=== PATIENT | male | born 1985 | race Caucasian/White ===

== ENCOUNTER 2022-05-18 06:50 | Inpatient (IN) | payer MEDICAID ==
[2022-05-18] VITALS (13 sets, daily range): BP systolic 105–134; BP diastolic 69–102
[~2022-05-18] VITALS: Ht 175.3 cm; Wt 64.0 kg
--- NOTE | 2022-05-18 07:15 | NUR ---
BIBSELF NAUSEA AND VOMITING X9 SINCE YESTERDAY 6PM , ARM TREMORS NOTED DURING ASSESSMENT. PATIENT STATED THAT HIS HICCUPS STARTED 2 WEEKS AGO AND GOT WORSEN BY VOMINTING. MD MADE AWARE. CARE CONTINUES .
--- NOTE | 2022-05-18 07:20 | NUR ---
BLOOD SAMPLE OBTAINED BY BONSAI CULTURIST
--- NOTE | 2022-05-18 07:25 | NUR ---
IV LINE ESTABLISHED AT RIGHT AC 20 G , INFUSING WELL.
[2022-05-18] MEDS ORDERED: ONDANSETRON HCL/PF 4 MG/2 ML VIAL IVP ONE (07:30)
[2022-05-18] MEDS ORDERED: IV NS 0.9% 1,000 ML BAG IV ONE (07:30)
[2022-05-18 07:41] LABS: BASOPHILS % (AUTO) 0.3 % (0.0-2.0); EOSINOPHILS % (AUTO) 0.1 % (0.0-6.0); HEMATOCRIT 33 % (39-51); HEMOGLOBIN 11.6 g/dL (13.5-17.5); LYMPHOCYTES # (AUTO) 0.7 K/uL (0.8-4.8); LYMPHOCYTES % (AUTO) 8.2 % (20.0-44.0); MEAN CORPUSCULAR HGB CONC 35 g/dl (31.0-36.0); MEAN CORPUSCULAR VOLUME 92 fL (80-96); MONOCYTES # (AUTO) 0.8 K/uL (0.1-1.30); MONOCYTES % (AUTO) 9.6 % (2.0-12.0); NEUTROPHILS # (AUTO) 6.5 K/uL (1.8-8.9); NEUTROPHILS % (AUTO) 81.8 % (43.0-81.0); PLATELET COUNT (AUTO) 285 K/uL (150-450); RED BLOOD CELL COUNT(AUTO) 3.63 MIL/uL (4.5-6.0)
[2022-05-18] MEDS ORDERED: ONDANSETRON HCL/PF 4 MG/2 ML VIAL ONE (07:44)
[2022-05-18 07:55] LABS: BILIRUBIN,DIRECT 0.8 mg/dL (0.0-0.2); BILIRUBIN,TOTAL 1.7 mg/dL (0.2-1.0); CALCIUM, SERUM 9.8 mg/dL (8.5-10.1); CREATININE 0.7 mg/dL (0.6-1.3); TOTAL PROTEIN, SERUM 7.4 g/dL (6.4-8.2)
[2022-05-18] MEDS ORDERED: LORAZEPAM INJ 2 MG/ML VIAL IV ONE ×2 (08:00→09:30)
[2022-05-18] MEDS ORDERED: LORAZEPAM INJ 2 MG/ML VIAL ONE ×2 (08:03→09:31)
--- NOTE | 2022-05-18 08:17 | NUR ---
COVID SWAB TAKEN SENT TO LAB
--- NOTE | 2022-05-18 08:45 | NUR ---
MOVE SHEET SUBMITTED.
--- NOTE | 2022-05-18 09:29 | NUR ---
[facility] CALLED RESTAURANT EXPEDITOR PAGED.
[2022-05-18] MEDS ORDERED: LORAZEPAM INJ 2 MG/ML VIAL IV PRN (10:00)
[2022-05-18] MEDS ORDERED: ONDANSETRON HCL/PF 4 MG/2 ML VIAL IVP PRN (10:00)
[2022-05-18] MEDS ORDERED: IV Sodium Chloride 3% 500 ML 300 ML IV SCH (10:00)
[2022-05-18] MEDS ORDERED: IV Sodium Chloride 3% 500 ML 500 ML IV ONE (10:00)
--- NOTE | 2022-05-18 10:31 | NUR ---
GOT BED 252 ADMITTING NOTIFIED.
--- NOTE | 2022-05-18 10:36 | NUR ---
REPORT GIVEN TO NURSE MCPHERSON FOR COLT
[2022-05-18 10:57] LABS: BILIRUBIN,URINE 1+ (NEGATIVE); COLOR,URINE YELLOW (YELLOW); LEUKOCYTE ESTERASE ,URINE NEGATIVE (NEGATIVE); NITRITE, URINE NEGATIVE (NEGATIVE); PH,URINE 8.5 (5.0-8.0); PROTEIN,URINE TRACE mg/dl (NEGATIVE); UGLUCOSE NEGATIVE (NEGATIVE); UROBILINOGEN,URINE 0.2 EU/dL (0.2)
[2022-05-18 11:16] LABS: BACTERIA,URINE Few /HPF (None Seen); SQUAMOUS EPITHELIAL CELL,UR Few /HPF (None Seen); WBC,URINE 0-2 /HPF (0-3)
--- NOTE | 2022-05-18 11:18 | NUR ---
MOVED TO INPATIENT ROOM SAFELY PER ACLS PROTOCOL, 3% NS RUNNING AT THE RATE OF 25ML/HR ENDORSED TO ICU NURSE LISANDRA.
--- NOTE | 2022-05-18 11:30 | NUR ---
EGG BREAKING MACHINE OPERATOR NOTE ADMIT 37 YEAR OLD CAMBODIAN MALE,ON ICU MONITORING AT ROOM 252,ALERT ORIENTED X2-3 CONFUSED,ANXIOUS ADMITTING DIAGNOSIS IS HYPONATREMIA/ETOH WITHDRAW,IV SITE IS ON RIGHT AC AND RIGHT HAND INTACT PATENT ON NS 3%,25CC/HR SAFETY MEASURE IMPLEMENT BED IN LOW POSITION AND LOCKED,BED ALARM IS ON HEAD OF THE BED ELEVATED CONTINUE TO MONITOR.
[2022-05-18] MEDS: ENOXAPARIN SODIUM 40 MG/0.4 ML DISP.SYRIN SQ SCH (11:40)
[2022-05-18] MEDS ORDERED: SODIUM CHLORIDE 3% IV SCH (11:47)
[2022-05-18] MEDS ORDERED: HALOPERIDOL LACTATE INJ 5 MG/ML VIAL IM ONE ×2 (12:30→18:00)
[2022-05-18] MEDS: IV D5W 1,000 ML IV PRN (15:15)
[2022-05-18] MEDS: POTASSIUM CL. PREMIX PERIPHER. 50 ML IV SCH ×5 (15:31→20:27)
[2022-05-18] MEDS: METRONIDAZOLE 500MG/ NS 100ML 500 MG in PREMIX 1 EA IV SCH ×2 (16:30→23:52)
[2022-05-18] MEDS: CLINDAMYCIN 300 MG in IV D5W 50 ML IV SCH ×2 (17:45→23:52)
[2022-05-18 17:54] LABS: CALCIUM, SERUM 9.4 mg/dL (8.5-10.1); CREATININE 0.6 mg/dL (0.6-1.3)
[2022-05-18] MEDS ORDERED: METRONIDAZOLE 500MG/ NS 100ML 500 MG in PREMIX 1 EA IV SCH (18:00)
--- NOTE | 2022-05-18 18:41 | NUR ---
CHEESE WEIGHER NOTE PATIENT REMAINS ALERT ORIENTED X3-4, VERBALLY RESPONSIVE ON ROOM AIR O2:94% IV SITE IS ON LEFT UPPER ARM MIDLINE,RAC AND RIGHT HAND INTACT PATENT,TACHYCARDIAC 133-143 ON CONDOM CATH,URINE DRAINING YELLOW AND CLEAR BY GRAVITY,ON IV HYDRATION D5W 75CC/HR,ALL DUE MEDS GIVEN MD ORDERED REPLACE POTASSIUM,KEPT HEAD OF THE BED ELEVATED, IS BED SIDE,WILL ENDORSE NEXT COMING SHIFT FOR CONTINUATION OF CARE.
[2022-05-18 23:28] LABS: CALCIUM, SERUM 9.7 mg/dL (8.5-10.1); CREATININE 0.7 mg/dL (0.6-1.3); POTASSIUM 3.4 mmol/L (3.5-5.1)
[2022-05-19] VITALS (22 sets, daily range): BP systolic 95–115; BP diastolic 58–81
[2022-05-19] MEDS: CLINDAMYCIN 300 MG in IV D5W 50 ML IV SCH ×4 (05:17→23:05)
[2022-05-19] MEDS: IV D5W 1,000 ML IV PRN ×2 (06:20→20:38)
--- NOTE | 2022-05-19 07:15 | NUR ---
HELPER STEEL FABRICATION OPEN NOTE: ASLEEP. RESPIRATIONS ARE EVEN AND UNLABORED. HOB ELEVATED. COLLATERAL SPECIALIST SINUS TACHY 120'S. IV ON LUM ML WITH IVF ORDERED. RIGHT UPPER ARM AC AND RIGHT HAND IV LINES PATENT. NO S/S OF COMPLICATIONS. BILATERAL HALF SIDE RAILS UP X2. BED IN LOW POSITION, LOCKED, EXIT ALARM ON. CALL LIGHT IN REACH. AT BEDSIDE.
[2022-05-19 07:34] LABS: CALCIUM, SERUM 9.2 mg/dL (8.5-10.1); CREATININE 0.7 mg/dL (0.6-1.3)
[2022-05-19] MEDS: METRONIDAZOLE 500MG/ NS 100ML 500 MG in PREMIX 1 EA IV SCH ×2 (08:10→16:37)
[2022-05-19 08:16] LABS: POTASSIUM 2.7 mmol/L (3.5-5.1)
[2022-05-19] MEDS: PANTOPRAZOLE 40 MG VIAL IV SCH (08:59)
[2022-05-19] MEDS: POTASSIUM CL. PREMIX PERIPHER. 50 ML IV SCH ×5 (08:59→13:45)
[2022-05-19] MEDS: ENOXAPARIN SODIUM 40 MG/0.4 ML DISP.SYRIN SQ SCH (11:35)
[2022-05-19 11:40] LABS: CALCIUM, SERUM 8.8 mg/dL (8.5-10.1); CREATININE 0.6 mg/dL (0.6-1.3)
[2022-05-19 11:57] LABS: POTASSIUM 2.8 mmol/L (3.5-5.1)
[2022-05-19] MEDS: CHLORDIAZEPOXIDE HCL 25 MG CAPSULE PO SCH ×2 (13:00→18:00)
[2022-05-19 16:32] LABS: CALCIUM, SERUM 8.6 mg/dL (8.5-10.1); CREATININE 0.5 mg/dL (0.6-1.3); POTASSIUM 3.6 mmol/L (3.5-5.1)
--- NOTE | 2022-05-19 18:30 | NUR ---
DIRECTOR OF GUIDANCE CLOSING NOTE: AWAKE AND RESPONSIVE. ALERT TIMES THREE. RESPIRATIONS ARE EVEN AND UNLABORED AT ROOM AIR SATING AT 97%. HOB ELEVATED. GASOLINE ATTENDANT SINUS TACHY 107. IV ON LUM PATENT. RIGHT UPPER ARM AC PATENT. NO S/S OF COMPLICATIONS. RIGHT HAND IV LINES PATENT NO S/S OF COMPLICATIONS WITH D5W 75 ML/HR. BILATERAL HALF SIDE RAILS UP X2. BED IN LOW POSITION, LOCKED, EXIT ALARM ON. CALL LIGHT IN REACH. AND FAMILY AT BEDSIDE. ON CLEAR LIQUID DIETS. TOLERATED WELL. NO N/V. CONTINUES ON IV ABX. NO S/E. DENIES PAIN OR DISCOMFORT.
--- NOTE | 2022-05-19 21:45 | NUR ---
report to Estephania Rn on TOM. UPDATED pt status. no acute distress, no s/s of withdrawals. at bedside. instructed on plan of care to transfer to tom. both verbalized understanding. transfered to room 329 via w/c. NAD at side
--- NOTE | 2022-05-19 22:20 | NUR ---
RN OPERATING ROOMSOLE STAPLER WELT NOTES RECEIVED PATIENT FROM ICU WITH NURSE SAHRA AND WHILE PATIENT WAS ON WHEELCHAIR. PATIENT IS A/O TIMES 4. ABLE TO MAKE NEEDS KNOWN. GEORGIAN AND PALESTINIAN SPEAKER. NO PAIN NOTED. NO SOB NOTED. NO DISTRESS NOTED. VITAL SIGNS NOTED RL=408/83, P=108, T=98.4, RR=20, O2 = 98% RA. IV ACCESS ON THE LEFT FA # 20 INTACT RUNNING D5W AT 75 ML/HR. PATIENT IS AMBULATORY AND BRP. ALL NEEDS ATTENDED. STAYING OVERNIGHT WITH THE PATIENT. OVERALL SKIN INTACT. ALL SAFETY MEASURES IN PLACE. BED LOCKED IN THE LOWEST POSITION. CALL LIGHT AND TABLE IN EASY REACH. SIDE RAILS UP TIMES 2. WILL CONTINUE TO MONITOR CLOSELY.
[2022-05-19 23:51] LABS: CALCIUM, SERUM 8.7 mg/dL (8.5-10.1); CREATININE 0.7 mg/dL (0.6-1.3); POTASSIUM 3.3 mmol/L (3.5-5.1)
[2022-05-20] VITALS: BP 140/71
[2022-05-20] MEDS: METRONIDAZOLE 500MG/ NS 100ML 500 MG in PREMIX 1 EA IV SCH ×4 (00:06→23:26)
--- NOTE | 2022-05-20 00:30 | NUR ---
RN NOTES LAB RESULT FOR POTASSIUM NOTED 3.[address] AKBAR KAUR. AT 0000. NEW ORDER OF KDUR [address] ONCE GIVEN BY DR KAUR. ORDER NOTED AND CARRIED OUT.
[2022-05-20] MEDS ORDERED: POTASSIUM CHLORIDE 20 MEQ TAB.PRT.SR PO ONE (01:00)
[2022-05-20] MEDS: CLINDAMYCIN 300 MG in IV D5W 50 ML IV SCH ×4 (05:12→23:16)
--- NOTE | 2022-05-20 06:47 | NUR ---
NURSING PROFESSOR CLOSING NOTES PATIENT AWAKE IN BED . AT BED SIDE. PATIENT IS A/O TIMES 4. ABLE TO MAKE NEEDS KNOWN. CZECH AND GRENADIAN SPEAKER. NO PAIN NOTED. NO SOB NOTED. NO DISTRESS NOTED. VITAL SIGNS IN STABLE CONDITION.IV ACCESS ON THE LEFT FA # 20 INTACT RUNNING D5W AT 75 ML/HR.ALSO THERE ARE 2 OTHER IV ACCESS LINES RIGHT HAND # 20 AND RIGHT AC # 20 . PATIENT IS AMBULATORY AND BRP. ALL DUE MEDS GIVEN ORDERED.ALL NEEDS ATTENDED. STAYED OVERNIGHT WITH THE PATIENT. OVERALL SKIN INTACT. ALL SAFETY MEASURES IN PLACE. BED LOCKED IN THE LOWEST POSITION. CALL LIGHT AND TABLE IN EASY REACH. SIDE RAILS UP TIMES 2. WILL ENDORSE FOR COLT.
[2022-05-20 07:03] LABS: BASOPHILS % (AUTO) 0.9 % (0.0-2.0); EOSINOPHILS % (AUTO) 1.1 % (0.0-6.0); HEMATOCRIT 27 % (39-51); HEMOGLOBIN 9.2 g/dL (13.5-17.5); LYMPHOCYTES # (AUTO) 1.2 K/uL (0.8-4.8); LYMPHOCYTES % (AUTO) 22.9 % (20.0-44.0); MEAN CORPUSCULAR HGB CONC 34 g/dl (31.0-36.0); MEAN CORPUSCULAR VOLUME 94 fL (80-96); MONOCYTES # (AUTO) 0.8 K/uL (0.1-1.30); MONOCYTES % (AUTO) 16.6 % (2.0-12.0); NEUTROPHILS % (AUTO) 58.5 % (43.0-81.0); PLATELET COUNT (AUTO) 292 K/uL (150-450); RED BLOOD CELL COUNT(AUTO) 2.89 MIL/uL (4.5-6.0); WHITE BLOOD COUNT (AUTO) 5.1 K/uL (4.3-11.0)
[2022-05-20 07:26] LABS: CALCIUM, SERUM 8.7 mg/dL (8.5-10.1); CREATININE 0.6 mg/dL (0.6-1.3); MAGNESIUM 1.4 mg/dL (1.8-2.4); PHOSPHORUS 1.5 mg/dL (2.5-4.9); POTASSIUM 3.2 mmol/L (3.5-5.1)
--- NOTE | 2022-05-20 07:30 | NUR ---
PATIENT RECEIVED RESTING COMFORTABLY IN BED WITH EYES CLOSED. NO S/S OR C/O PAIN OR DISTRESS NOTED. SIDE RAILS UP X2, CALL LIGHT LEFT WITHIN REACH. WILL CONTINUE PLAN OF CARE.
[2022-05-20 08:36] VITALS: BP 112/73
[2022-05-20] MEDS: CHLORDIAZEPOXIDE HCL 25 MG CAPSULE PO SCH ×3 (09:23→18:58)
[2022-05-20] MEDS: PANTOPRAZOLE 40 MG VIAL IV SCH (09:23)
[2022-05-20] MEDS: ENOXAPARIN SODIUM 40 MG/0.4 ML DISP.SYRIN SQ SCH (09:34)
[2022-05-20] MEDS ORDERED: POTASSIUM CHLORIDE 20 MEQ POWDER PACKET PO ONE (10:00)
[2022-05-20 11:04] VITALS: BP 112/73
[2022-05-20 11:22] VITALS: BP 111/73
[2022-05-20] MEDS: Magnesium 1GM/D5W 100ML PREMIX 100 ML IV SCH ×4 (12:07→15:52)
[2022-05-20 16:05] VITALS: BP 120/79
[2022-05-20] MEDS: IV D5W 1,000 ML IV PRN (16:32)
--- NOTE | 2022-05-20 18:24 | NUR ---
CHANGE OF SHIFT REPORT PT RESTING COMFORTABLY IN BED. NO S/S/ OR C/O PAIN OR DISTRESS NOTED. SIDE RAILS UP X2, CALL LIGHT LEFT WITHIN REACH. PT KEPT CLEAN, DRY AND COMFORTABLE. WILL GIVE REPORT TO MAKEDA MILLER.
[2022-05-20] MEDS ORDERED: NEUTRA PHOS 1 POWD.PACKET PO ONE (18:30)
--- NOTE | 2022-05-20 19:34 | NUR ---
RN OPENING NOTES; RECEIVED PT IN BED SLEEPING BUT EASY TO AROUSED,AOX4 ABLE TO MAKE NEEDS KNOWN, AT BED SIDE,ON RM AIR DEBBI WELL,NO SIGN SOB/DISTRESS NOTED,IV ACCESS ON LFA ML WITH D5W 75ML/HR INFUSING WELL,SAFETY MEASURE IN PLACE,CALL LIGHT WITHIN REACH,WILL CONTINUE TO MONITOR.
[2022-05-20 20:00] VITALS: BP 113/74
[2022-05-21] VITALS: BP 112/75
[2022-05-21 04:00] VITALS: BP 117/69
[2022-05-21] MEDS: CLINDAMYCIN 300 MG in IV D5W 50 ML IV SCH ×2 (05:11→11:58)
[2022-05-21] MEDS: IV D5W 1,000 ML IV PRN (05:11)
--- NOTE | 2022-05-21 06:13 | NUR ---
RN OPENING NOTES; PATIENT IN BED AAOX4 ABLE TO MAKE NEEDS KNOWN, AT BED SIDE,ON RM AIR DEBBI WELL,NO SIGN SOB/DISTRESS NOTED,NO COMPLAIN OF PAIN/DISCOMFORT DURING SHIFT,DUE MEDS GIVEN ORDER,ALL NEEDS ATTENDED,IV ACCESS ON LFA ML WITH D5W 75ML/HR INFUSING WELL,SAFETY MEASURE IN PLACE,CALL LIGHT WITHIN REACH,WILL ENDORSED TO NEXT SHIFT.
[2022-05-21 07:00] VITALS: BP 105/73
--- NOTE | 2022-05-21 07:21 | NUR ---
HEAD TURBINE OPERATOR OPENING NOTES PATIENT RECEIVED AWAKE IN BED IN NO ACUTE SIGNS OF DISTRESS. A/O X 4. ABLE TO MAKE NEEDS KNOWN, DENIES PAIN OR ANY DISCOMFORTS AT THIS TIME. ON ROOM AIR, TOLERATING WELL, BREATHING EVEN AND UNLABORED. PT ON TELE-MONITOR WITH CURRENT READING OF ST, HR 103, NO C/O CARDIAC DISTRESS VOICED. MADI MIDLINE G#18 INTACT WITH IVF OF D5W AT 75 ML/HR INFUSING WELL. ALL SAFETY MEASURES IN PLACE: BED IN LOWEST LOCKED POSITION, SIDE RAILS UP X 2, CALL LIGHT AND TRAY TABLE W/IN EASY REACH OF PT. WILL CONTINUE TO MONITOR PT.
[2022-05-21 07:30] LABS: CALCIUM, SERUM 8.5 mg/dL (8.5-10.1); CREATININE 0.8 mg/dL (0.6-1.3); MAGNESIUM 1.7 mg/dL (1.8-2.4); PHOSPHORUS 2.4 mg/dL (2.5-4.9); POTASSIUM 3.8 mmol/L (3.5-5.1)
[2022-05-21 07:44] LABS: BASOPHILS # (AUTO) 0.1 K/uL (0.0-0.2); BASOPHILS % (AUTO) 1.2 % (0.0-2.0); EOSINOPHILS % (AUTO) 1.2 % (0.0-6.0); HEMATOCRIT 28 % (39-51); HEMOGLOBIN 9.3 g/dL (13.5-17.5); LYMPHOCYTES # (AUTO) 1.1 K/uL (0.8-4.8); LYMPHOCYTES % (AUTO) 20.6 % (20.0-44.0); MEAN CORPUSCULAR HGB CONC 34 g/dl (31.0-36.0); MEAN CORPUSCULAR VOLUME 96 fL (80-96); MONOCYTES # (AUTO) 1.1 K/uL (0.1-1.30); MONOCYTES % (AUTO) 20.7 % (2.0-12.0); NEUTROPHILS # (AUTO) 3.1 K/uL (1.8-8.9); NEUTROPHILS % (AUTO) 56.3 % (43.0-81.0); PLATELET COUNT (AUTO) 342 K/uL (150-450); RED BLOOD CELL COUNT(AUTO) 2.88 MIL/uL (4.5-6.0); WHITE BLOOD COUNT (AUTO) 5.5 K/uL (4.3-11.0)
[2022-05-21] MEDS: METRONIDAZOLE 500MG/ NS 100ML 500 MG in PREMIX 1 EA IV SCH (08:45)
[2022-05-21] MEDS: PANTOPRAZOLE 40 MG VIAL IV SCH (08:46)
[2022-05-21] MEDS: CHLORDIAZEPOXIDE HCL 25 MG CAPSULE PO SCH (08:46)
[2022-05-21 09:00] LABS: BAND % (MANUAL) 1 % (0.0-5.0); LYMPHOCYTES % (MANUAL) 21 % (16-48); MONOCYTES % (MANUAL) 20 % (0-11.0); NEUTROPHILS % (MANUAL) 58 (42-76)
[2022-05-21] MEDS ORDERED: MAGNESIUM OXIDE 400 MG TABLET PO ONE (09:30)
[2022-05-21] MEDS ORDERED: DOXY-226 PO (10:13)
[2022-05-21] MEDS ORDERED: CHLO25CA22 PO (10:13)
[2022-05-21] MEDS: ENOXAPARIN SODIUM 40 MG/0.4 ML DISP.SYRIN SQ SCH (11:00)
[2022-05-21 12:30] VITALS: BP 111/76
--- NOTE | 2022-05-21 14:07 | NUR ---
DISCHARGE NOTES RN PATIENT DISCHARGE HOME IN STABLE CONDITION. A/O X4, ABLE TO MAKE NEEDS KNOWN. PATIENT IS BREATHING EVENLY AND UNLABORED ON ROOM AIR, NO SIGNS OF DISTRESS NOTED. TELE-MONITOR BOX REMOVED AND RETURNED TO INTERNSHIP COORDINATOR JESSY. PATIENT AND WERE GIVEN DISCHARGE INSTRUCTIONS BOTH VERBALLY AND IN WRITTEN FORM, BOTH VERBALIZED UNDERSTANDING. PATIENT BELONGINGS ACCOUNTED FOR, BELONGING SHEET SIGNED BY PT. MADI MIDLINE G#18 REMOVED, DRY DRESSING APPLIED, AT SITE, NO SIGNS OF BLEEDING NOTED. REMOVED NAME ARM BAND, PRESCRIPTION FOR LIBRIUM CAP AND DOXYCYCLINE TAB HANDED TO PT'S . PATIENT LEFT UNIT AT 1400 AMBULATORY ACCOMPANIED BY ELDER BOUCHER AND PT'S COTY. CHARGE NURSE AWARE ON D/C.
[2022-05-21] MEDS ORDERED: K PHOS NEUTRAL 250 MG TABLET PO ONE (15:30)
== END 2022-05-21 14:00 | disposition home or self-care (01) | DRG 426 ==
LOC: ER 06:53 → ICU 10:35 → TELE 05-19 21:24
PROVIDERS: ADMIT Registered Nurse; ATTEND Registered Nurse
PROC: 05HC33Z Insertion of Infusion Device into Left Basilic Vein, Percutaneous Approach (ICD-10-PCS; principal; 2022-05-18)
DX: E87.1 Hypo-osmolality and hyponatremia (principal); G93.41 Metabolic encephalopathy; J15.6 Pneumonia due to other Gram-negative bacteria; E87.6 Hypokalemia; F10.139 Alcohol abuse with withdrawal, unspecified; G40.89 Other seizures; E87.8 Other disorders of electrolyte and fluid balance, not elsewhere classified; Z88.0 Allergy status to penicillin; R73.9 Hyperglycemia, unspecified; F32.A Depression, unspecified; F41.9 Anxiety disorder, unspecified; R74.01 Elevation of levels of liver transaminase levels
CPT/HCPCS: 36410; 36415; 80048-TC; 80076-TC; 81001; 83690-TC; 83735-TC; 84100-TC; 84295-TC; 84300-TC; 85025-TC; 87081-TC; A4216; A4223; A4349; C9113; C9803; G0378; G0480; J1630; J1650; J2060; J2405; J3475; J3480; J3490; J7030; J7050; J7060; J7070